=== PATIENT | female | born 1995 | race Caucasian/White ===

== ENCOUNTER 2019-05-11 10:55 | Emergency (ER) | payer OTHER ==
[~2019-05-11] VITALS: Ht 157.5 cm; Wt 71.7 kg
[2019-05-11 11:00] VITALS: BP 113/70; Ht 157.5 cm; Wt 71.7 kg
== END 2019-05-11 12:03 | disposition left against medical advice (07) ==
LOC: ED 10:55
DX: Z53.21 Procedure and treatment not carried out due to patient leaving prior to being seen by health care provider (principal)